=== PATIENT | male | born 1970 | race Caucasian/White ===

== ENCOUNTER 2025-08-26 12:43 | Emergency (ER) | payer SELFPAY ==
--- NOTE | ~2025-08-26 | CT_ITS ---
EXAMINATION: CT ankle LT wo con DATE: 08/26/2025 14:25 INDICATION: Left ankle injury post fall TECHNIQUE: High resolution computed tomography (CT) of the left ankle was performed without intravenous contrast. Additional sagittal and coronal reconstructions were performed. Automated exposure control and iterative reconstruction technique were employed. The dose-length product was 448.66 mGy-cm. COMPARISON: None FINDINGS: There is an acute appearing coronally oriented and mildly comminuted fracture of the posterior malleolus of the distal tibia which involves a small portion of the posterior articular surface of the tibial plafond. There is minimal posterior displacement of the largest and most posterior fragment with a couple tiny fracture fragments displaced into the lucent fracture gap which measures up to 3 mm AP with along the articular surface there are couple additional nondisplaced fracture fragments along the posterior articular surface configuration which is best appreciated on axial series 3, image 60. No other fractures identified. Small heterotopic ossicle along the anterior margin of the distal tip of the medial malleolus likely sequela of chronic deltoid ligament sprain. 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 No ankle joint effusion. IMPRESSION: 1. Minimally displaced, mildly comminuted intra-articular fracture of the posterior malleolus of the distal left tibia. No other fractures identified. 2. Heterotopic opacification along the deltoid ligament consistent with sequela of chronic sprain. Reviewed, dictated and finalized at location A. POUNCER IMPRESSION: 1. Minimally displaced, mildly comminuted intra-articular fracture of the poste rior malleolus of the distal left tibia. No other fractures identified. 2. Heterotopic opacification along the deltoid ligament consistent with sequela of chronic sprain.
--- NOTE | ~2025-08-26 | XR_ITS ---
EXAMINATION: XR knee LT 3V, XR ankle LT min 3V DATE: 08/26/2025 13:07 INDICATION: Left knee pain radiating to the ankle post fall TECHNIQUE: 1. Anteroposterior, 2 oblique and crosstable lateral views of the left knee were obtained 2. Anteroposterior, lateral, oblique and mortise views of the left ankle were obtained. COMPARISON: None. FINDINGS: Left knee: Alignment is normal. Subtle nondisplaced oblique fracture of the proximal left fibular diaphysis. No other fractures identified. Left knee joint spaces appear normal. No joint effusion/layering lipohemarthrosis. Soft tissues are unremarkable. Left ankle: There is a coronally oriented linear lucency projecting over the posterior malleolus consistent with age-indeterminate minimally displaced fracture. There is however no evident fracture of the medial or lateral malleoli and an isolated posterior malleolar fracture would be highly unusual suggesting this could be chronic. There is a heterotopic ossification near the tip the medial malleolus consistent with a chronic deltoid ligament sprain. No other lesions suspicious for fracture identified. Also arguing against acute injury is the absence of a discernible left ankle joint effusion. IMPRESSION: 1. Nondisplaced fracture of the proximal metaphyseal region of the left fibula. 2. Fracture suggestion of age-indeterminate minimally displaced fracture at the posterior malleolus of the distal left tibia and heterotopic opacification of the medial malleolus consistent with chronic deltoid ligament sprain. Correlate clinically for history of prior ankle fracture. Alternatively this there is clinical concern for acute ankle injury could consider CT for more definitive determination. Would also recommend radiographs of the intervening left tibia and fibula. Reviewed, dictated and finalized at location A. FREIGHT CONDUCTOR IMPRESSION: 1. Nondisplaced fracture of the proximal metaphyseal region of the left fibula. 2. Fracture suggestion of age-indeterminate minimally displaced fracture at the posterior malleolus of the distal left tibia and heterotopic opacification of the medial malleolus consistent with chronic deltoid ligament sprain. Correlate clinically for history of prior ankle fracture. Alternatively this there is cl inical concern for acute ankle injury could consider CT for more definitive det ermination. Would also recommend radiographs of the intervening left tibia and fibula.
--- NOTE | ~2025-08-26 | XR_ITS ---
EXAMINATION: XR tibia fibula LT 2V, 08/26/2025 13:30 SEAFOOD PREPARER HISTORY: request by LT [facility] LOW LEG PAIN COMPARISON: No comparisons available. Findings: Small avulsion fracture medial malleolus No significant degenerative changes. Soft tissues unremarkable. Impression: Medial malleolus avulsion fracture Reviewed, dictated and finalized at location P. OOD PREPARER Impression: Medial malleolus avulsion fracture
[2025-08-26 12:55] VITALS: BP 156/106; PULSE 72; RESP 16; TEMP 36.3; O2SAT 100
[2025-08-26] MEDS: HYDROcodone/acetaminophen (*CRX) 5-325 MG TABLET 1 TAB PO (14:43)
--- NOTE | 2025-08-26 15:11 | ED_ITS ---
HPI - Extremity Injury (Lower) General Chief Complaint: Extremity Injury, Lower Stated Complaint: fall Time Seen by Provider: 08/26/25 12:56 Source: patient Mode of arrival: ambulatory Limitations: no limitations History of Present Illness HPI Narrative: Patient is a 55-year-old male who presents the ED with report of fall on ice. He reports he slipped on his garage steps that were covered in ice. Twisted his left ankle in the process and fell with his left lower leg bent backwards underneath of him. States he heard several pops and cracks. He complains of pain to his left lateral knee, lateral ankle. Reports difficulty ambulating. Denies numbness, any other injuries. Denies head injury. Related Data Allergies Allergy/AdvReac Type Severity Reaction Status Date / Time No Known Allergies Allergy Verified 08/26/25 14:42 Review of Systems Review of Systems: All systems reviewed & are unremarkable except as noted in HPI. All systems reviewed & are unremarkable except as noted in HPI and below Exam Narrative: GENERAL: Well appearing, morbidly obese with BMI of 40.2, non-toxic, in no acute distress. HEAD: Normocephalic, atraumatic. RESPIRATORY: Airway patent, respirations nonlabored. CARDIOVASCULAR: Regular rate and rhythm without murmurs, rubs, or gallops. Pedal pulses intact and easily palpable MUSCULOSKELETAL: Moves all extremities. No gross deformities. Mild tenderness to palpation along lateral proximal lower leg. Tenderness to palpation and swelling throughout lateral malleoli of left ankle joint. No significant tenderness over medial malleoli. Sensation intact. No significant tenderness over metatarsals. Capillary refill intact. SKIN: Warm, dry, normal color. NEURO: A&O X3. Speech clear. Cranial nerves II-XII grossly intact. No ataxic movements. PSYCHIATRIC: Appropriate mood and affect. Normal interaction. Course Vital Signs Vital signs: Vital Signs Temperature 97.3 F L 08/26/25 12:55 Pulse Rate 72 08/26/25 12:55 Respiratory Rate 16 08/26/25 12:55 Blood Pressure 156/106 H 08/26/25 12:55 Pulse Oximetry 100 08/26/25 12:55 Oxygen Delivery Room Air 08/26/25 12:55 Temperature 97.3 F L 08/26/25 12:55 Pulse Rate 72 08/26/25 12:55 Respiratory Rate 16 08/26/25 12:55 Blood Pressure 156/106 H 08/26/25 12:55 Pulse Oximetry 100 08/26/25 12:55 Oxygen Delivery Room Air 08/26/25 12:55 [facility] Narrative Medical decision making narrative: Patient presented to ED status post ground level mechanical fall, pain to left lower extremity Vital signs stable upon arrival. Patient neurovascularly intact. No evidence of compartment syndrome. Good peripheral pulses. X-ray of left knee showing nondisplaced proximal fibular fracture. Consistent with patient's area of pain/tenderness. X-ray of left ankle showing possible new versus old injury. Patient does report previous old injury. CT scan of the ankle was performed and does show minimally displaced fracture of the posterior left tibia. Discussed case with Dr. Fu, orthopedics, reviewed imaging himself. Recommended short leg posterior splint, knee immobilizer, crutches/strict NWB, f/u in office on Friday. Patient is in agreement with this plan. Feels comfortable going home. Has crutches at home. Discussed rice therapy. Pain medications sent to pharmacy. Given strict return precautions. Patient discharged in stable condition. Differential Diagnosis Differential Diagnosis: ankle sprain, ankle fx, knee sprain, patellar fx, compartment syndrome Lab Data [facility] Lab Attestation statement: I personally reviewed the patient's lab results. Imaging Data Attestation: I personally reviewed and interpreted this imaging study as follows: Radiologist's impression: ITS Impressions Ankle X-Ray 08/26/25 13:19 IMPRESSION: 1. Nondisplaced fracture of the proximal metaphyseal region of the left fibula. 2. Fracture suggestion of age-indeterminate minimally displaced fracture at the posterior malleolus of the distal left tibia and heterotopic opacification of the medial malleolus consistent with chronic deltoid ligament sprain. Correlate clinically for history of prior ankle fracture. Alternatively this there is clinical concern for acute ankle injury could consider CT for more definitive determination. Would also recommend radiographs of the intervening left tibia and fibula. Knee X-Ray 08/26/25 13:19 IMPRESSION: 1. Nondisplaced fracture of the proximal metaphyseal region of the left fibula. 2. Fracture suggestion of age-indeterminate minimally displaced fracture at the posterior malleolus of the distal left tibia and heterotopic opacification of the medial malleolus consistent with chronic deltoid ligament sprain. Correlate clinically for history of prior ankle fracture. Alternatively this there is clinical concern for acute ankle injury could consider CT for more definitive determination. Would also recommend radiographs of the intervening left tibia and fibula. Tibia/Fibula X-Ray 08/26/25 13:50 Impression: Medial malleolus avulsion fracture Ankle CT 08/26/25 14:39 IMPRESSION: 1. Minimally displaced, mildly comminuted intra-articular fracture of the posterior malleolus of the distal left tibia. No other fractures identified. 2. Heterotopic opacification along the deltoid ligament consistent with sequela of chronic sprain. Discharge Plan Discharge Clinical Impression: Fracture of proximal end of left fibula Qualifiers: Encounter type: initial encounter Fracture type: closed Fracture morphology: unspecified fracture morphology Qualified Code(s): S82.832A - Other fracture of upper and lower end of left fibula, initial encounter for closed fracture Closed fracture of posterior malleolus of left tibia Qualifiers: Encounter type: initial encounter Qualified Code(s): S82.392A - Other fracture of lower end of left tibia, initial encounter for closed fracture Fall due to ice or snow Qualifiers: Encounter type: initial encounter Qualified Code(s): W00.9XXA - Unspecified fall due to ice and snow, initial encounter Patient Disposition: Home Condition: Stable Instructions: Antibiotic Form, Ankle Fracture (ED), Leg Fracture (ED), Splint Care (ED) Additional Instructions: Follow-up with orthopedics for further evaluation. Call office today to make appointment on Friday. Wear splint until seen by orthopedics. Wear immobilizer at all times. Avoid any weight-bearing on left leg. Use crutches for assistance with walking. Recommend frequent icing to leg, elevation of leg, Tylenol/ibuprofen as needed for pain. [place] needed for more severe pain. Return to the ED if you experience worsening or severe pain or swelling, recurrent fall or injury, numbness, or any other symptoms of concern. Patient Language: Djiboutian Prescriptions: New hydrocodone-acetaminophen 5-325 mg tablet 1 tablet PO Q6H PRN (Reason: pain) Qty: 20 0RF Follow-up/Referrals: PHYSICIAN,TRENCHER DRIVER [Primary Care Provider, Internal Medicine] Sudeep Fu MD [Physician, Orthopedics] Time of Disposition: 15:27
== END 2025-08-26 16:00 | disposition home or self-care (01) ==
PROVIDERS: Emergency Provider Physician Assistant
DX: S82.832A Other fracture of upper and lower end of left fibula, initial encounter for closed fracture (principal); S82.892A Other fracture of left lower leg, initial encounter for closed fracture; W00.1XXA Fall from stairs and steps due to ice and snow, initial encounter
CPT/HCPCS: 29515; 73562; 73590; 73610; 73700; 99284; A9270

== ENCOUNTER 2025-09-20 10:03 | Outpatient (CLI) | payer SELFPAY ==
--- NOTE | ~2025-09-20 | US_ITS ---
EXAMINATION:US venous doppler LE LT INDICATION:Left leg pain TECHNIQUE: Multiple grayscale, color flow and Doppler images of the left lower extremity deep venous systems were obtained and reviewed. COMPARISON:No prior studies for comparison. FINDINGS: There is deep venous thrombosis of the left popliteal, posterior tibial, peroneal and gastrocnemius veins. The remainder of the left lower extremity veins are patent with normal flow and compressibility. IMPRESSION: 1: Extensive deep venous thrombosis of the left lower extremity. Patient will be held in radiology until the physician is contacted with the results. Reviewed, dictated and finalized at location O. ETING GRAPHICS SPECIALIST IMPRESSION: 1: Extensive deep venous thrombosis of the left lower extremity. Patient will b e held in radiology until the physician is contacted with the results.
--- OUTSIDE RECORDS SUMMARY | 2025-09-20 10:33 | XMS_ITS | Clinical Summary ---
Author Organization [facility] Address [address] [place] [id number] Care Team Providers Care [employer] Officer Name Role Phone Unavailable Primary Care Provider Unavailabl e Social History Tobacco Use Types Packs/Day Years Used Date Smoking Tobacco: Never Assessed Sex and Gender Information Value Date Recorded Sex Assigned at Not on file Legal Sex Male 8:31 PM CDT Gender Identity Not on file Sexual Orientation Not on file Plan of Treatment Health Maintenance Due Date Last Done Comments Colorectal Cancer Screening Colonoscopy (10 Years) 1971 Annual Physical 1974 Hepatitis C 1989 DTaP, Tdap and Td Vaccines ( 1 - Tdap) 1990 Hepatitis B Vaccines (1 of 3 - 19+ 3-dose series) 1990 Pneumococcal Vaccine: 50+ Ye ars (1 of 1 - PCV) 2021 Zoster Vaccines (1 of 2) 2021 COVID-19 Vaccine ( - 2024-2 6 season) 2025 Influenza Adult (#1) 2025 Hepatitis A Vaccines Aged Out No long er eligible based on patient's age to complete this topic Meningococcal B Vaccine Aged Out No l onger eligible based on patient's age to complete this topic Meningococcal Vaccine Aged Out No emma jessi eligible based on patient's age to complete this topic RSV Immunizations Under 20 Months Aged Out No longer eligible based on patient's age to complete this topic
== END 2025-09-20 10:04 | disposition home or self-care (01) ==
PROVIDERS: Visit Provider Orthopaedic Surgery
DX: M79.89 Other specified soft tissue disorders (principal); I82.492 Acute embolism and thrombosis of other specified deep vein of left lower extremity
CPT/HCPCS: 93971

== ENCOUNTER 2025-09-20 11:59 | Emergency (ER) | payer SELFPAY ==
[2025-09-20 12:18] VITALS: BP 147/90; PULSE 65; RESP 17; TEMP 36.7; O2SAT 99
--- OUTSIDE RECORDS SUMMARY | 2025-09-20 12:32 | XMS_ITS | Clinical Summary ---
Author Organization [facility] Address [address] [place] [id number] Care Team Providers Care Mottle Lay Up Operator Name Role Phone Unavailable Primary Care Provider [...]
--- OUTSIDE RECORDS SUMMARY | 2025-09-20 14:12 | XMS_ITS | Clinical Summary ---
Author Organization [facility] Address [address] [place] [id number] Care Team Providers Care Glass Checker Name Role Phone Unavailable Primary Care Provider [...]
--- NOTE | 2025-09-20 14:30 | ED.GENADULT ---
HPI - General Adult General Chief complaint: Extremity Injury, Lower Stated complaint: pcp sent here after blood clot test Time Seen by Provider: 09/20/25 13:27 History of Present Illness HPI narrative: 55-year-old male present to the emergency department for evaluation for left lower leg pain. Patient did have an outpatient ultrasound showing DVT of the popliteal and gastrocnemius veins. Patient denies any chest pain or shortness of breath. Patient denies any nausea vomiting diarrhea. Patient does state that his leg swelling has improved. Patient's primary complaint was posterior knee pain. Related Data Home Medications ?Medication ?Instructions ?Recorded ?Confirmed ?Last Taken ?Type Ibuprofen PO 09/20/25 09/20/25 Unknown History Tylnol PO 09/20/25 09/20/25 Unknown History Allergies Allergy/AdvReac Type Severity Reaction Status Date / Time No Known Allergies Allergy Verified 09/20/25 07:02 Review of Systems Review of Systems: All systems reviewed & are unremarkable except as noted in HPI and below PMFSH Social History Social History (Updated 09/20/25 @ 09:10 by Shayy Singh, [facility]) Smoking status: Never smoker Alcohol intake: current Substance use: never Lack of Transportation: No Lack of Food: Never True Current Housing: I Have Housing Concerned About Future Housing: No Difficulty Paying Gas/Electric Bills: No Difficulty Paying for Meds: No Currently Unemployed: YES Education: Associate Degree Difficulty w/ Childcare or Family Care: No Exam Narrative: APPEARANCE: Well appearing, no pain, no distress, well-nourished. HEAD: normocephalic, atraumatic. EYES: PERRLA/EOMI, conjunctivae clear. NOSE: Normal no drainage EARS:TMS clear with good light reflex. THROAT: Pharynx clear, no exudate. NECK: Supple. No adenopathy, no masses. RESPIRATORY: Airway patent, respirations nonlabored. Clear to auscultation bilaterally, no rales, rhonchi, wheezing. CARDIOVASCULAR: Regular rate and rhythm without murmurs rubs or gallops. ABDOMINAL: Soft, nontender, nondistended, normal bowel sounds MUSCULOSKELETAL: No tenderness to left proximal thigh some tenderness to left posterior knee NEURO: Alert. Cranial nerves II through XII intact. Good gait. Good coordination SKIN: Warm, dry. Normal Color Course Vital Signs Vital signs: Vital Signs Temperature 98.1 F 09/20/25 12:18 Pulse Rate 65 09/20/25 12:18 Respiratory Rate 17 09/20/25 12:18 Blood Pressure 147/90 H 09/20/25 12:18 Pulse Oximetry 99 09/20/25 12:18 Oxygen Delivery Room Air 09/20/25 12:18 Temperature 98.1 F 09/20/25 12:18 Pulse Rate 65 09/20/25 15:32 Respiratory Rate 16 09/20/25 15:32 Blood Pressure 149/88 H 09/20/25 15:32 Pulse Oximetry 97 09/20/25 15:32 Oxygen Delivery Room Air 09/20/25 12:18 [facility] Narrative Medical decision making narrative: 55-year-old male presents emergency department for evaluation for posterior left knee pain and an outpatient ultrasound that was positive for DVT. Patient had normal cbc and CMP and PT PTT. Patient was started Xarelto emergency department discharged home with a starter pack. Patient was encouraged to continue have close follow-up with Orthopedics and with his primary care physician. All questions concerns were addressed and patient was well-appearing at time of discharge. Differential Diagnosis Differential Diagnosis: DVT, cellulitis, superficial venous thrombosis Lab Data [facility] Lab Attestation statement: I personally reviewed the patient's lab results. 09/20/25 14:38 09/20/25 14:38 Labs: Lab Results 09/20/25 Range/Units 14:38 WBC 8.2 (4.5-10.0) K/mm3 RBC 5.17 (4.6-6.20) M/mm3 Hgb 15.1 (14.0-18.0) g/dL Hct 45.0 (42.0-52.0) % MCV 87.0 (80-100) fl MCH 29.2 (26-34) pg MCHC 33.6 (32-36) g/dl RDW 12.5 (11.5-14.5) % Plt Count 230 (150-375) k/mm3 MPV 9.5 (7.4-10.4) fl Immature Gran % (Auto) 0.5 (0-0.5) % Neut % (Auto) 66.6 (45.5-73.1) % Lymph % (Auto) 23.4 (18.3-44.2) % [place] % (Auto) 6.3 (2.6-8.5) % Eos % (Auto) 2.2 (0-4.4) % Baso % (Auto) 1.0 (0.2-1.2) % Lymph # (Auto) 1.91 (0.9-3.2) K/mm3 [place] # (Auto) 0.5 (0.1-0.6) K/mm3 Eos # (Auto) 0.2 (0-0.3) K/mm3 Baso # (Auto) 0.1 (0.0-0.1) K/mm3 Abs Immat Gran (auto) 0.04 H (0.00-0.031) K/mm3 Absolute Neuts (auto) 5.4 (1.3-6.7) K/mm3 Absolute Nucleated RBC 0.000 (0.0-0.012) K/mm3 Nucleated RBC % 0.0 (0.0-0.2) % PT 13.9 (11.1-14.7) Seconds INR 1.1 APTT 26.5 (22.3-36.8) Seconds Sodium 139 (137-145) mmol/L Potassium 4.0 (3.4-5.0) mmol/L Chloride 108 H (98-107) mmol/L Carbon Dioxide 24 (22-30) mmol/L Anion Gap 7 (4-12) mmol/L BUN 17 (9-20) mg/dL Creatinine 0.80 (0.7-1.3) mg/dL Estim Creat Clear Calc 122 ml/min Estimated GFR > 60 (59 - ) Glucose 120 H (65-110) mg/dL Calcium 9.2 (8.4-10.2) mg/dL Total Bilirubin 0.8 (0.2-1.3) mg/dL AST 29 (17-59) U/L ALT 24 (6-50) U/L Alkaline Phosphatase 58 (38-126) U/L Total Protein 7.5 (6.3-8.2) g/dL Albumin 4.1 (3.5-5.1) g/dL Discharge Plan Discharge Clinical Impression: DVT (deep venous thrombosis) Patient Disposition: Home Condition: Stable Instructions: Antibiotic Form Additional Instructions: Xarelto as directed. Have close follow-up with your primary care physician and with Orthopedics. Patient Language: Serbian Prescriptions: New Xarelto DVT-PE Treat 30d Start 15 mg (42)- 20 mg (9) tablets,dose pack See Rx Instructions .ROUTE .COMPLEX Qty: 51 0RF Rx Instructions: take one-15 mg tablet twice daily for 21 days, then one-20 mg tablet once daily; must take with meal/food Discontinued Xarelto 10 mg tablet 20 mg PO BID 30 Days Qty: 120 0RF No Action Ibuprofen PO Tylnol PO Follow-up/Referrals: PHYSICIAN,COSMETIC SALES [Primary Care Provider, Internal Medicine]
[2025-09-20 14:44] LABS: Hematocrit 45.0 % (42.0-52.0); Hemoglobin 15.1 g/dL (14.0-18.0); Immature Granulocyte Percent A 0.5 % (0-0.5); Lymphocytes Absolute Auto 1.91 K/mm3 (0.9-3.2); Mean Corpuscular HGB Conc 33.6 g/dl (32-36); Mean Corpuscular Hemoglobin 29.2 pg (26-34); Mean Corpuscular Volume 87.0 fl (80-100); Nucleated Red Blood Cells Absolute Auto 0.000 K/mm3 (0.0-0.012); Nucleated Red Blood Cells Perc 0.0 % (0.0-0.2); Platelet Count Result 230 k/mm3 (150-375); Red Blood Count 5.17 M/mm3 (4.6-6.20); White Blood Count 8.2 K/mm3 (4.5-10.0)
[2025-09-20 14:56] LABS: INR 1.1; Prothrombin Time 13.9 Seconds (11.1-14.7)
[2025-09-20 14:57] LABS: Partial Thromboplastin Time 26.5 Seconds (22.3-36.8)
[2025-09-20 15:04] LABS: Alanine Aminotransferase 24 U/L (6-50); Albumin Level 4.1 g/dL (3.5-5.1); Alkaline Phosphatase 58 U/L (38-126); Anion Gap 7 mmol/L (4-12); Aspartate Amino Transferase 29 U/L (17-59); Bilirubin,Total 0.8 mg/dL (0.2-1.3); Blood Urea Nitrogen 17 mg/dL (9-20); Calcium 9.2 mg/dL (8.4-10.2); Carbon Dioxide 24 mmol/L (22-30); Chloride 108 mmol/L (98-107); Estimated CRCL calculation 122 ml/min; Estimated Glomerular Filt Rate > 60; Glucose 120 mg/dL (65-110); Potassium 4.0 mmol/L (3.4-5.0); Sodium 139 mmol/L (137-145); Total Protein 7.5 g/dL (6.3-8.2)
[2025-09-20 15:32] VITALS: BP 149/88; PULSE 65; RESP 16; O2SAT 97
[2025-09-20] MEDS: RIVAROXABAN 15 MG TABLET PO (15:33)
== END 2025-09-20 15:42 | disposition home or self-care (01) ==
PROVIDERS: Emergency Provider Emergency Medicine
DX: I82.432 Acute embolism and thrombosis of left popliteal vein (principal); I82.462 Acute embolism and thrombosis of left calf muscular vein
CPT/HCPCS: 36415; 80053; 85025; 85610; 85730; 99283; A9270